=== PATIENT | male | born 1955 | race Caucasian/White ===

== ENCOUNTER 2023-03-25 09:29 | Inpatient (IN) | payer BC, MEDICAID ==
[~2023-03-25] VITALS: Ht 162.6 cm; Wt 64.6 kg
[2023-03-25 09:30] VITALS: O2SAT 100
[2023-03-25] MEDS ORDERED: SODIUM CHLORIDE 0.9% 1,000 ML IV ONE ×2 (10:45→12:45)
[2023-03-25 11:19] LABS: HEMOGLOBIN. 10.7 g/dL (14.0-18.0); MEAN CORPUSCULAR HGB CONC 32.3 g/dL (31.0-37.0); MEAN CORPUSCULAR VOLUME 86.7 fL (80.0-94.0); MEAN PLATELET VOLUME 8.7 fl (7.4-10.4); PLATELET 185 x1000/uL (130-400); RED BLOOD CELL COUNT 3.81 mill/uL (4.7-6.1); RED CELL DISTRIBUTION WIDTH 16.1 % (11.6-14.6); WHITE BLOOD COUNT 29.4 x1000/uL (4.5-11.0)
[2023-03-25 11:23] LABS: DIFFERENTIAL COMMENT 1
[2023-03-25 11:26] LABS: INR 1.4; PROTHROMBIN TIME 15.1 sec (9.6-11.0)
[2023-03-25 11:31] LABS: CHLORIDE 101 mEq/L (98-107); INDEX HEMOLYSI 1 (1-3); INDEX ICTERIC 3 (1-4); INDEX LIPEMIC 1 (1-3); POTASSIUM 3.9 mEq/L (3.5-5.1); SODIUM 130 mEq/L (136-145)
[2023-03-25 11:50] LABS: ALANINE AMINOTRANSFERASE 294 IU/L (13-61); ALBUMIN 2.4 g/dL (3.4-5.0); ASPARTATE AMINOTRANSFERASE 323 IU/L (15-37); BILIRUBIN TOTAL 7.9 mg/dL (0.1-1.0); CARBON DIOXIDE 22 mEq/L (21-32); CREATININE 2.1 mg/dL (0.6-1.3); ETHANOL BLOOD < 10 mg/dL (-10); GLUCOSE 217 mg/dL (70-105); TROPONIN I HIGH SENSITIVITY 6 ng/L (<78); UREA NITROGEN BLOOD 39 mg/dL (7-21)
[2023-03-25] MEDS ORDERED: VANCOMYCIN 1G PREMIX 200 ML IV NR (12:15)
[2023-03-25] MEDS ORDERED: PIPERACILLIN/TAZ 3.375G PREMIX 50 ML IV NR (12:30)
[2023-03-25 12:33] LABS: ANISOCYTOSIS 1+; PLATELET ESTIMATE NORMAL
[2023-03-25] MEDS ORDERED: SODIUM CHLORIDE 0.9% 500 ML IV SCH (12:45)
[2023-03-25 14:55] LABS: HEPATITIS B SURFACE ANTIGEN NEGATIVE
[2023-03-25 15:24] LABS: HEPATITIS B CORE AB IGM NEGATIVE
[2023-03-25 18:00] VITALS: BP 117/51; PULSE 99; RESP 18; TEMP 101
[2023-03-25] MEDS ORDERED: ONDANSETRON HCL 4MG/2ML INJ IV PRN (18:30)
[2023-03-25] MEDS: ACETAMINOPHEN 325MG TABLET PO PRN (18:43)
[2023-03-25] MEDS ORDERED: DEXTROSE 50% WATER 50ML SYRINGE IV PRN ×2 (18:45→19:00)
[2023-03-25] MEDS ORDERED: SODIUM CHLORIDE 0.9% 1,000 ML IV SCH (20:00)
[2023-03-25] MEDS ORDERED: BLOOD SUGAR DIAGNOSTIC STRIP TEST SCH (21:00)
[2023-03-25] MEDS: INSULIN LISPRO 100 UNITS/ML SUBCUT SCH (21:00)
[2023-03-25] MEDS ORDERED: INSULIN LISPRO 100 UNITS/ML SUBCUT SCH (21:00)
[2023-03-25] MEDS: BLOOD SUGAR DIAGNOSTIC STRIP TEST SCH (21:08)
[2023-03-25 22:20] VITALS: BP 94/49; PULSE 75; RESP 17; TEMP 97.7
[2023-03-25] MEDS: SODIUM CHLORIDE 0.9% 1,000 ML IV SCH (23:00)
[2023-03-25] MEDS: PIPERACILLIN/TAZOBACTAM 3.375 G in DEXTROSE 5% WATER 50 ML IV SCH (23:12)
[2023-03-26] VITALS (9 sets, daily range): BP systolic 92–135; BP diastolic 51–77; PULSE 67–80; RESP 17–19; TEMP 95–99.3
[2023-03-26] MEDS: SODIUM CHLORIDE 0.9% 1,000 ML IV SCH ×3 (03:07→19:26)
[2023-03-26] MEDS: INSULIN LISPRO 100 UNITS/ML SUBCUT SCH ×4 (06:24→21:37)
[2023-03-26] MEDS: BLOOD SUGAR DIAGNOSTIC STRIP TEST SCH ×4 (06:24→21:00)
[2023-03-26] MEDS: PANTOPRAZOLE 40MG DR TABLET PO SCH (06:25)
[2023-03-26 06:30] LABS: INR 1.7; PROTHROMBIN TIME 17.2 sec (9.6-11.0)
[2023-03-26 06:58] LABS: POTASSIUM 3.9 mEq/L (3.5-5.1)
[2023-03-26 07:03] LABS: VITAMIN B12 SERUM 1067 pg/mL (211-911)
[2023-03-26 07:09] LABS: HEMATOCRIT. 35.5 % (42.0-52.0); HEMOGLOBIN. 11.5 g/dL (14.0-18.0); MEAN CORPUSCULAR HEMOGLOBIN 28.1 pg (28.0-32.0); MEAN CORPUSCULAR HGB CONC 32.3 g/dL (31.0-37.0); MEAN CORPUSCULAR VOLUME 86.8 fL (80.0-94.0); MEAN PLATELET VOLUME 9.7 fl (7.4-10.4); PLATELET 146 x1000/uL (130-400); RED BLOOD CELL COUNT 4.08 mill/uL (4.7-6.1); RED CELL DISTRIBUTION WIDTH 16.2 % (11.6-14.6); WHITE BLOOD COUNT 26.7 x1000/uL (4.5-11.0)
[2023-03-26 07:25] LABS: ALBUMIN 1.9 g/dL (3.4-5.0); BILIRUBIN TOTAL 6.7 mg/dL (0.1-1.0); CALCIUM 8.2 mg/dL (8.5-10.1); CREATININE 1.6 mg/dL (0.6-1.3); PROTEIN TOTAL 6.2 g/dL (6.0-8.3)
[2023-03-26 07:50] LABS: DIFFERENTIAL COMMENT 1
[2023-03-26] MEDS: PIPERACILLIN/TAZOBACTAM 3.375 G in DEXTROSE 5% WATER 50 ML IV SCH ×3 (09:31→22:16)
[2023-03-26] MEDS ORDERED: VANCOMYCIN 1G PREMIX 200 ML IV SCH (13:00)
[2023-03-26 13:46] LABS: PLATELET ESTIMATE NORMAL
[2023-03-26] MEDS: PHYTONADIONE 10MG/ML INJ SUBCUT SCH (16:41)
[2023-03-26 16:49] LABS: HEPATITIS C VIR.AB 0.14 INDEXVAL (0.00-0.80)
[2023-03-26 16:51] LABS: HEPATITIS A AB IGM NEGATIVE (NEGATIVE)
[2023-03-26 17:05] LABS: CLARITY URINE CLOUDY (CLEAR); COLOR URINE DARK YELLOW (YELLOW); GLUCOSE URINE 3+ (NEGATIVE); KETONES URINE NEGATIVE (NEGATIVE); LEUKOCYTE ESTERASE URINE NEGATIVE (NEGATIVE); NITRITE URINE NEGATIVE (NEGATIVE); OCCULT BLOOD URINE TRACE (NEGATIVE); PH URINE 5.5 (4.5-8.0); PROTEIN URINE 1+ (NEGATIVE); SPECIFIC GRAVITY URINE 1.019 (1.005-1.030); UROBILINOGEN URINE 0.2 E.U./dL (0.2-1.0)
[2023-03-26 17:08] LABS: YEAST URINE NONE SEEN
[2023-03-26 17:28] LABS: BACTERIA URINE 2+; SQUAMOUS EPITHELIAL CELL URINE FEW /lpf (RARE/1+)
[2023-03-26 17:29] LABS: RBC URINE 0-2 /hpf (0-2); WBC URINE 0-2 /hpf (0-2)
[2023-03-26] MEDS ORDERED: EMPA25TA MT (18:53)
[2023-03-26] MEDS ORDERED: OMEP20CA14 MT (18:53)
[2023-03-26] MEDS ORDERED: LISI20TA31 PO (18:53)
[2023-03-26] MEDS ORDERED: INSU100I24 SQ (18:53)
[2023-03-26] MEDS ORDERED: METF-414 MT (18:53)
[2023-03-26] MEDS ORDERED: ATOR10TA69 PO (18:53)
[2023-03-27] MEDS: ONDANSETRON HCL 4MG/2ML INJ IV PRN (00:13)
[2023-03-27] MEDS: ACETAMINOPHEN 325MG TABLET PO PRN ×2 (00:14→13:38)
[2023-03-27 02:43] LABS: BASOPHILS % 0.1 % (0.0-2.0); EOSINOPHILS % 0.6 % (0.0-5.0); HEMATOCRIT. 31.4 % (42.0-52.0); HEMOGLOBIN. 10.5 g/dL (14.0-18.0); LYMPHOCYTES % 9.3 % (20.0-50.0); MEAN CORPUSCULAR HEMOGLOBIN 28.5 pg (28.0-32.0); MEAN CORPUSCULAR HGB CONC 33.4 g/dL (31.0-37.0); MEAN CORPUSCULAR VOLUME 85.2 fL (80.0-94.0); MEAN PLATELET VOLUME 8.9 fl (7.4-10.4); MONOCYTES % 3.3 % (2.0-8.0); NEUTROPHILS % 86.7 % (40.0-76.0); PLATELET 163 x1000/uL (130-400); RED BLOOD CELL COUNT 3.69 mill/uL (4.7-6.1); RED CELL DISTRIBUTION WIDTH 16.2 % (11.6-14.6); WHITE BLOOD COUNT 18.9 x1000/uL (4.5-11.0)
[2023-03-27 02:50] LABS: POTASSIUM 3.8 mEq/L (3.5-5.1)
[2023-03-27 02:52] LABS: CALCIUM 8.6 mg/dL (8.5-10.1); INR 1.1; PROTHROMBIN TIME 12.2 sec (9.6-11.0)
[2023-03-27 02:55] LABS: CREATININE 1.3 mg/dL (0.6-1.3)
[2023-03-27 04:00] VITALS: BP 127/48; PULSE 71; RESP 17; TEMP 99.7
[2023-03-27] MEDS: PIPERACILLIN/TAZOBACTAM 3.375 G in DEXTROSE 5% WATER 50 ML IV SCH (05:49)
[2023-03-27 06:11] LABS: ALPHA FETOPROTEIN TUMOR MARKER < 1.8 ng/mL (0.0-8.4); CA 19-9 821 U/mL (0-35)
[2023-03-27] MEDS: INSULIN LISPRO 100 UNITS/ML SUBCUT SCH ×4 (07:10→22:21)
[2023-03-27] MEDS: BLOOD SUGAR DIAGNOSTIC STRIP TEST SCH ×4 (07:10→21:00)
[2023-03-27] MEDS: PANTOPRAZOLE 40MG DR TABLET PO SCH (07:10)
[2023-03-27 08:00] VITALS: BP 141/52; PULSE 71; RESP 18; TEMP 98.1
[2023-03-27] MEDS ORDERED: IOHEXOL-300 50 ML BOTTLE IV ONE (08:27)
[2023-03-27] MEDS ORDERED: LIDOCAINE HCL 1% 10 MG/ML 10ML VIAL ONE (08:27)
[2023-03-27] MEDS: PHYTONADIONE 10MG/ML INJ SUBCUT SCH (08:50)
[2023-03-27 09:01] LABS: BILIRUBIN DIRECT 5.5 mg/dL (0.0-0.2); BILIRUBIN TOTAL 6.8 mg/dL (0.1-1.0); PROTEIN TOTAL 6.2 g/dL (6.0-8.3)
[2023-03-27] MEDS ORDERED: LIDOCAINE HCL 1% 20ML VIAL (Pyxis) INJ ONE (09:03)
[2023-03-27] MEDS ORDERED: MIDAZOLAM HCL 2 MG/2 ML VIAL ONE (09:03)
[2023-03-27] MEDS ORDERED: DEXAMETHASONE 4MG/ML 1ML VIAL ONE (09:03)
[2023-03-27] MEDS ORDERED: PROPOFOL 200MG/20ML VIAL IV ONE (09:03)
[2023-03-27] MEDS ORDERED: ONDANSETRON HCL 4MG/2ML INJ ONE (09:03)
[2023-03-27] MEDS ORDERED: FENTANYL CITRATE/PF 50MCG/ML 2ML VIAL ONE (09:03)
[2023-03-27] MEDS ORDERED: METOCLOPRAMIDE HCL 10MG/2ML VIAL ONE (09:03)
[2023-03-27] MEDS ORDERED: EPHEDRINE SULFATE 50MG/ML VIAL ONE (09:52)
[2023-03-27] MEDS ORDERED: FENTANYL CITRATE/PF 50MCG/ML 2ML VIAL IV PRN (10:30)
[2023-03-27] MEDS ORDERED: HYDROMORPHONE HCL/PF 2MG/ML CPJ IV PRN (10:30)
[2023-03-27] MEDS: SODIUM CHLORIDE 0.9% 1,000 ML IV SCH (11:00)
[2023-03-27 12:00] VITALS: BP 135/67; PULSE 80; RESP 18; TEMP 99.5
[2023-03-27 14:49] LABS: *AMPHETAMINES SCREEN URINE NEGATIVE (NEGATIVE); *BARBITURATES SCREEN URINE NEGATIVE (NEGATIVE); *BENZODIAZEPINES SCREEN URINE PRESUMTIVE POSITIVE (NEGATIVE); *COCAINE SCREEN URINE NEGATIVE (NEGATIVE); CANNABINOID URINE SCREEN NEGATIVE (NEGATIVE); ECSTASY MDMA SCREEN URINE NEGATIVE (NEGATIVE); METHADONE URINE SCREEN NEGATIVE (NEGATIVE); OPIATES URINE SCREEN NEGATIVE (NEGATIVE); PHENCYCLIDINE URINE SCREEN NEGATIVE (NEGATIVE)
[2023-03-27] MEDS: METRONIDAZOLE 500 MG PREMIX 100 ML IV SCH ×2 (15:17→21:58)
[2023-03-27] MEDS: CEFTRIAXONE 2 G in DEXTROSE 5% WATER 50 ML IV SCH (15:17)
[2023-03-27 16:00] VITALS: BP 148/52; PULSE 75; RESP 18; TEMP 98.1
[2023-03-27 20:00] VITALS: BP 149/70; PULSE 74; RESP 20; TEMP 97.7
[2023-03-27] MEDS ORDERED: NALOXONE HCL 0.4MG/ML VIAL IV PRN (20:00)
[2023-03-27] MEDS: HYDROCODONE/ACETAMINOPHEN 10/325MG TABLET PO PRN (20:46)
[2023-03-28] VITALS: BP 144/72; PULSE 65; RESP 18; TEMP 96.4
[2023-03-28 04:00] VITALS: BP 157/76; PULSE 65; RESP 18; TEMP 97
[2023-03-28] MEDS: BLOOD SUGAR DIAGNOSTIC STRIP TEST SCH ×4 (05:16→21:00)
[2023-03-28] MEDS: METRONIDAZOLE 500 MG PREMIX 100 ML IV SCH ×3 (06:07→21:49)
[2023-03-28] MEDS: PANTOPRAZOLE 40MG DR TABLET PO SCH (06:07)
[2023-03-28] MEDS: INSULIN LISPRO 100 UNITS/ML SUBCUT SCH ×4 (06:18→21:47)
[2023-03-28 07:34] LABS: HEMATOCRIT. 34.3 % (42.0-52.0); HEMOGLOBIN. 11.3 g/dL (14.0-18.0); MEAN CORPUSCULAR HEMOGLOBIN 28.9 pg (28.0-32.0); MEAN CORPUSCULAR HGB CONC 32.9 g/dL (31.0-37.0); MEAN PLATELET VOLUME 9.7 fl (7.4-10.4); PLATELET 142 x1000/uL (130-400); RED BLOOD CELL COUNT 3.89 mill/uL (4.7-6.1); RED CELL DISTRIBUTION WIDTH 16.1 % (11.6-14.6); WHITE BLOOD COUNT 20.6 x1000/uL (4.5-11.0)
[2023-03-28 07:58] LABS: CHLORIDE 104 mEq/L (98-107); INDEX HEMOLYSI 2 (1-3); INDEX ICTERIC 3 (1-4); INDEX LIPEMIC 1 (1-3); POTASSIUM 4.8 mEq/L (3.5-5.1); SODIUM 132 mEq/L (136-145)
[2023-03-28 08:00] VITALS: BP 148/74; PULSE 69; RESP 20; TEMP 96.9
[2023-03-28 08:08] LABS: CALCIUM 8.7 mg/dL (8.5-10.1); CARBON DIOXIDE 20 mEq/L (21-32); GLUCOSE 267 mg/dL (70-105); UREA NITROGEN BLOOD 31 mg/dL (7-21)
[2023-03-28 08:43] LABS: DIFFERENTIAL COMMENT 1
[2023-03-28] MEDS: PHYTONADIONE 10MG/ML INJ SUBCUT SCH (09:06)
[2023-03-28 12:00] VITALS: BP 154/70; PULSE 66; RESP 18; TEMP 97.9
[2023-03-28] MEDS: SODIUM CHLORIDE 0.9% 1,000 ML IV SCH ×2 (13:58→21:50)
[2023-03-28] MEDS ORDERED: INSULIN GLARGINE 100 UNITS/ML SUBCUT NR (14:45)
[2023-03-28] MEDS: CEFTRIAXONE 2 G in DEXTROSE 5% WATER 50 ML IV SCH (15:11)
[2023-03-28 16:00] VITALS: BP 151/71; PULSE 68; TEMP 98.1
[2023-03-28 16:39] LABS: PLATELET ESTIMATE NORMAL
[2023-03-28 16:42] LABS: BILIRUBIN DIRECT 3.9 mg/dL (0.0-0.2); BILIRUBIN TOTAL 4.6 mg/dL (0.1-1.0); PROTEIN TOTAL 6.2 g/dL (6.0-8.3)
[2023-03-28 20:00] VITALS: BP 153/63; PULSE 68; RESP 20; TEMP 98.2
[2023-03-28] MEDS: HYDROCODONE/ACETAMINOPHEN 10/325MG TABLET PO PRN (21:44)
[2023-03-28] MEDS: INSULIN GLARGINE 100 UNITS/ML SUBCUT SCH (21:48)
[2023-03-29] VITALS: BP 169/79; PULSE 63; RESP 20; TEMP 97.1
[2023-03-29] MEDS: LISINOPRIL 20MG TABLET PO SCH ×2 (00:14→08:22)
[2023-03-29 04:00] VITALS: BP 175/86; PULSE 58; RESP 18; TEMP 98.6
[2023-03-29] MEDS: METRONIDAZOLE 500 MG PREMIX 100 ML IV SCH ×2 (05:06→14:40)
[2023-03-29] MEDS: CLONIDINE 0.1MG TABLET PO PRN (05:06)
[2023-03-29] MEDS: ONDANSETRON HCL 4MG/2ML INJ IV PRN ×4 (05:13→18:59)
[2023-03-29] MEDS: HYDROCODONE/ACETAMINOPHEN 10/325MG TABLET PO PRN (05:17)
[2023-03-29] MEDS: BLOOD SUGAR DIAGNOSTIC STRIP TEST SCH ×4 (06:00→21:23)
[2023-03-29] MEDS: INSULIN LISPRO 100 UNITS/ML SUBCUT SCH ×4 (06:00→21:14)
[2023-03-29] MEDS: PANTOPRAZOLE 40MG DR TABLET PO SCH (06:39)
[2023-03-29 07:13] LABS: BASOPHILS % 0.1 % (0.0-2.0); DIFFERENTIAL COMMENT 0; EOSINOPHILS % 0.3 % (0.0-5.0); HEMATOCRIT. 31.9 % (42.0-52.0); HEMOGLOBIN. 10.6 g/dL (14.0-18.0); LYMPHOCYTES % 11.6 % (20.0-50.0); MEAN CORPUSCULAR HEMOGLOBIN 28.6 pg (28.0-32.0); MEAN CORPUSCULAR HGB CONC 33.3 g/dL (31.0-37.0); MEAN CORPUSCULAR VOLUME 85.8 fL (80.0-94.0); MEAN PLATELET VOLUME 9.2 fl (7.4-10.4); MONOCYTES % 4.5 % (2.0-8.0); NEUTROPHILS % 83.5 % (40.0-76.0); PLATELET 155 x1000/uL (130-400); RED BLOOD CELL COUNT 3.72 mill/uL (4.7-6.1); RED CELL DISTRIBUTION WIDTH 16.2 % (11.6-14.6)
[2023-03-29 07:30] LABS: CHLORIDE 108 mEq/L (98-107); INDEX HEMOLYSI 1 (1-3); INDEX ICTERIC 2 (1-4); INDEX LIPEMIC 1 (1-3); POTASSIUM 4.1 mEq/L (3.5-5.1); SODIUM 134 mEq/L (136-145)
[2023-03-29 07:54] LABS: ALANINE AMINOTRANSFERASE 140 IU/L (13-61); ALBUMIN 1.9 g/dL (3.4-5.0); ASPARTATE AMINOTRANSFERASE 37 IU/L (15-37); BILIRUBIN DIRECT 2.8 mg/dL (0.0-0.2); BILIRUBIN TOTAL 3.3 mg/dL (0.1-1.0); CALCIUM 8.1 mg/dL (8.5-10.1); CARBON DIOXIDE 22 mEq/L (21-32); CREATININE 0.9 mg/dL (0.6-1.3); GLUCOSE 169 mg/dL (70-105); PROTEIN TOTAL 5.9 g/dL (6.0-8.3); UREA NITROGEN BLOOD 31 mg/dL (7-21)
[2023-03-29 08:00] VITALS: BP 159/70; PULSE 55; RESP 20; TEMP 97.1
[2023-03-29] MEDS ORDERED: METR-167 MT (08:10)
[2023-03-29] MEDS ORDERED: LEVO750T68 MT (08:10)
[2023-03-29] MEDS: INSULIN GLARGINE 100 UNITS/ML SUBCUT SCH ×2 (10:00→21:15)
[2023-03-29] MEDS ORDERED: DOCUSATE SODIUM 250MG CAPSULE PO NR ×2 (10:30→18:56)
[2023-03-29] MEDS: SODIUM CHLORIDE 0.9% 1,000 ML IV SCH ×2 (11:00→17:37)
[2023-03-29 12:00] VITALS: BP 145/70; PULSE 57; RESP 18; TEMP 97.8
[2023-03-29] MEDS: PHYTONADIONE 10MG/ML INJ SUBCUT SCH (14:47)
[2023-03-29] MEDS: CEFTRIAXONE 2 G in DEXTROSE 5% WATER 50 ML IV SCH (15:34)
[2023-03-29 16:00] VITALS: BP 167/69; PULSE 60; RESP 20; TEMP 98
[2023-03-29 20:00] VITALS: BP 155/60; PULSE 65; RESP 18; TEMP 97.6
[2023-03-29] MEDS ORDERED: LACTULOSE 20G/30ML UDC PO PRN (21:00)
[2023-03-30] VITALS: BP 155/60; PULSE 67; RESP 18; TEMP 97.8
[2023-03-30] MEDS: METRONIDAZOLE 500 MG PREMIX 100 ML IV SCH ×2 (01:56→06:12)
[2023-03-30] MEDS: ACETAMINOPHEN 325MG TABLET PO PRN (02:21)
[2023-03-30] MEDS: ONDANSETRON HCL 4MG/2ML INJ IV PRN (02:35)
[2023-03-30] MEDS: CLONIDINE 0.1MG TABLET PO PRN (02:36)
[2023-03-30] MEDS: SODIUM CHLORIDE 0.9% 1,000 ML IV SCH (03:00)
[2023-03-30 04:00] VITALS: BP 155/60; PULSE 65; RESP 18; TEMP 97.6
[2023-03-30] MEDS: PANTOPRAZOLE 40MG DR TABLET PO SCH (06:12)
[2023-03-30] MEDS: BLOOD SUGAR DIAGNOSTIC STRIP TEST SCH (06:12)
[2023-03-30] MEDS: INSULIN LISPRO 100 UNITS/ML SUBCUT SCH (06:12)
[2023-03-30 08:00] VITALS: BP 191/82; PULSE 60; RESP 18; TEMP 97.7
[2023-03-30] MEDS: LISINOPRIL 20MG TABLET PO SCH (09:09)
[2023-03-30] MEDS: INSULIN GLARGINE 100 UNITS/ML SUBCUT SCH (10:00)
[2023-03-30 10:19] VITALS: BP 132/73; PULSE 76; TEMP 97.5
== END 2023-03-30 13:17 | disposition home or self-care (01) | DRG 871 ==
LOC: ER 09:29 → 8WST 13:06 → EDBEDREQ 13:09 → EDBEDREQTM 13:09
PROVIDERS: ADMIT Internal Medicine; ATTEND Internal Medicine
PROC: 30233L1 Transfusion of Nonautologous Fresh Plasma into Peripheral Vein, Percutaneous Approach (ICD-10-PCS; 2023-03-26)
PROC: 0F798ZZ Dilation of Common Bile Duct, Via Natural or Artificial Opening Endoscopic (ICD-10-PCS; principal; 2023-03-27)
PROC: BF101ZZ Fluoroscopy of Bile Ducts using Low Osmolar Contrast (ICD-10-PCS; 2023-03-27)
DX: A41.51 Sepsis due to Escherichia coli [E. coli] (principal); E43 Unspecified severe protein-calorie malnutrition; D68.9 Coagulation defect, unspecified; K83.09 Other cholangitis; C22.0 Liver cell carcinoma; E87.1 Hypo-osmolality and hyponatremia; N17.9 Acute kidney failure, unspecified; K80.71 Calculus of gallbladder and bile duct without cholecystitis with obstruction; Z20.822 Contact with and (suspected) exposure to COVID-19; E11.9 Type 2 diabetes mellitus without complications; R65.20 Severe sepsis without septic shock; R16.2 Hepatomegaly with splenomegaly, not elsewhere classified; I10 Essential (primary) hypertension; D64.9 Anemia, unspecified; E78.5 Hyperlipidemia, unspecified; Z68.24 Body mass index [BMI] 24.0-24.9, adult; Z79.4 Long term (current) use of insulin; Z79.84 Long term (current) use of oral hypoglycemic drugs; Z87.11 Personal history of peptic ulcer disease; Z90.49 Acquired absence of other specified parts of digestive tract
CPT/HCPCS: 36415; 47533; 71045; 71250; 74176; 74181; 76705; 80048; 80053; 80076; 80202; 80305; 80307; 80320; 81003; 82105; 82248; 82378; 82607; 82728; 82746; 82962; 83036; 83540; 83550; 83605; 84145; 84484; 85025; 85044; 86301; 86705; 86709; 86803; 86850; 86900; 86927; 87070; 87077; 87186; 87340; 87426; 87804; 93005; 99285; C1725; C1760; C1769; C1893; J0696; J1100; J1815; J2250; J2405; J2543; J2704; J2765; J3010; J3370; J3430; J3490; J7030; J7060; P9017; Q9967; G0480